=== PATIENT | female | born 1940 | race Caucasian/White ===

== ENCOUNTER 2018-03-27 10:39 | Emergency (ER) | payer MEDICARE, BC ==
[~2018-03-27] VITALS: Ht 165.1 cm; Wt 82.6 kg
[2018-03-27 11:39] LABS: BASOPHILS % 0.5 % (0.0-1.0); EOSINOPHILS % 0.5 % (0.0-6.0); HEMATOCRIT 34.3 % (34.2-44.1); HEMOGLOBIN 11.3 g/dL (12.0-16.0); LYMPHOCYTES # (AUTO) 0.7 (1.0-3.2); LYMPHOCYTES % 7.5 % (18.0-39.1); MEAN CORPUSCULAR HEMOGLOBIN 28.2 pg (28-32); MEAN CORPUSCULAR HGB CONC 32.9 g/dL (31-35); MEAN CORPUSCULAR VOLUME 85.5 fL (81-99); MONOCYTES # (AUTO) 0.6 (0.2-0.8); MONOCYTES % 6.9 % (4.4-11.3); NEUTROPHILS # (AUTO) 7.3 (2.1-6.9); NEUTROPHILS % 84.3 % (38.7-80.0); PLATELET COUNT 186 x10e3/uL (140-360); RED BLOOD COUNT 4.01 x10e6/uL (3.6-5.1); RED CELL DISTRIBUTION WIDTH 13.7 % (11.7-14.4)
[2018-03-27 11:49] LABS: ALBUMIN 3.7 g/dL (3.5-5.0); ANION GAP 14.8 mmol/L (8-16); CALCIUM 9.7 mg/dL (8.4-10.2); CREATININE, SERUM 0.9 mg/dL (0.57-1.11); POTASSIUM 3.8 mmol/L (3.5-5.1)
--- NOTE | 2018-03-27 12:07 | Diagnostic Imaging Report ---
EXAM: XR CHEST 2 VIEWS DATE: 03/27/2018 11:27 AM INDICATION: Fever COMPARISON: None FINDINGS: Lines and Tubes: Left chest wall dual-lead pacemaker with leads overlying right atrium and right ventricle and left atrial appendage clip noted. Heart and Mediastinum: No acute cardiomediastinal findings. Lungs and Pleura: No pneumothorax. Hazy opacities overlie the lung bases, with no focal consolidation on lateral view. Bones and Soft Tissues: No acute findings. IMPRESSION: 1. Hazy opacities overlying lung bases likely reflect atelectasis and overlying soft tissue. No distinct focal consolidation. Signed by: Dr. Rishi Loredo MD on 03/27/2018 12:03 PM
[2018-03-27 12:35] LABS: BILIRUBIN,URINE NEGATIVE (NEGATIVE); CLARITY,URINE CLEAR (CLEAR); COLOR,URINE YELLOW (YELLOW); KETONES,URINE NEGATIVE (NEGATIVE); LEUKOCYTE ESTERASE ,URINE NEGATIVE (NEGATIVE); NITRITE,URINE NEGATIVE (NEGATIVE); PROTEIN,URINE DIPSTICK NEGATIVE (NEGATIVE); URINE UROBILINOGEN 0.2 mg/dL (0.2 - 1)
[2018-03-27 12:37] LABS: BACTERIA,URINE FEW /HPF; EPITHELIAL CELLS,URINE FEW /LPF; RBC,URINE 0-5 /HPF (0-5); WBC,URINE (MAN) 0-5 /HPF (0-5)
[2018-03-27] MEDS ORDERED: CEFTRIAXONE SOD 1 GM VIAL IV ONE (13:15)
[2018-03-27 13:54] VITALS: BP 132/55
== END 2018-03-27 14:24 | disposition home or self-care (01) ==
LOC: ER 10:39
DX: R50.9 Fever, unspecified (principal); R05 Cough; J15.9 Unspecified bacterial pneumonia
CPT/HCPCS: 36415; 71046; 80053; 81001; 83605; 85025; 87040; 87086; 87400; 93005; 99284; J0696